=== PATIENT | male | born 1945 | race Asian ===

== ENCOUNTER 2024-12-22 13:56 | Inpatient (IN) | payer MEDICARE ==
[~2024-12-22] VITALS: Ht 162.6 cm; Wt 38.8 kg
[2024-12-22] MEDS: SODIUM CHLORIDE 0.9% 500 ML IV ONE (15:11)
[2024-12-22 15:39] LABS: BASOPHILS % (AUTO) 0.3 % (0.0-2.0); EOSINOPHILS % (AUTO) 0.7 % (1.0-6.0); HEMATOCRIT 39.9 % (41-53); HEMOGLOBIN 13.1 g/dL (13.5-17.5); LYMPHOCYTES # (AUTO) 0.4 K/uL (1.0-4.8); LYMPHOCYTES % (AUTO) 4.3 % (22.0-44.0); MEAN CORPUSCULAR HEMOGLOBIN 30.9 pg (26.0-34.0); MEAN CORPUSCULAR HGB CONC 32.7 G/dL (31.0-37.0); MEAN CORPUSCULAR VOLUME 95 fL (80-100); MONOCYTES # (AUTO) 0.7 K/uL (0.1-1.0); MONOCYTES % (AUTO) 7.7 % (2.0-9.0); NEUTROPHILS # (AUTO) 8.5 K/uL (1.8-7.7); PLATELET COUNT (AUTO) 277 K/uL (150-450); RED BLOOD CELL COUNT(AUTO) 4.23 MIL/uL (4.50-5.90); RED CELL DISTRIBUTION WIDTH 13.3 % (11.5-14.5); WHITE BLOOD COUNT (AUTO) 9.7 K/uL (4.5-11.0)
[2024-12-22 15:50] LABS: ANION GAP 10 mmol/L (8-16); CALCIUM, TOTAL 9.8 mg/dL (8.8-10.5); CARBON DIOXIDE 31 mmol/L (22-29); CHLORIDE 105 mmol/L (98-107); GLOMERULAR FILTR. RATE CALC 31 mL/min (>60); GLUCOSE,RANDOM 135 mg/dL (70-110); POTASSIUM 3.8 mmol/L (3.5-5.1); SODIUM SERUM 146 mmol/L (136-145); UREA NITROGEN, BLOOD 41 mg/dL (7-18)
[2024-12-22 15:59] LABS: ALANINE AMINOTRANSFERASE 7 U/L (12-78); ALBUMIN 2.5 g/dL (3.4-5.0); ALKALINE PHOSPHATASE 81 U/L (46-116); ASPARTATE AMINOTRANSFERASE 24 U/L (15-37); BILIRUBIN,TOTAL 0.4 mg/dL (0.1-1.0); TOTAL PROTEIN, SERUM 7.3 g/dL (6.4-8.2); TROPONIN I-HIGH SENSITIVITY 26 ng/L (<76)
[2024-12-22 16:21] LABS: PROTHROMBIN TIME 10.9 SEC (9.4-11.6)
[2024-12-22] MEDS: SODIUM CHLORIDE 0.9% 1,000 ML IV ONE (16:21)
[2024-12-22] MEDS: CefTRIAXone 1 GM/DEXTROSE 50 ML IV ONE (16:27)
[2024-12-22 16:37] LABS: COVID AG,FIA SOURCE NASAL SWAB
[2024-12-22] MEDS: LevETIRAcetam 1,000 MG in DEXTROSE 5%-WATER 100 ML IV ONE (16:49)
[2024-12-22 16:59] LABS: SARS-COV2 (COVID) ANTIGEN,FIA Negative (Negative)
[2024-12-22 16:59] LABS: B-TYPE NATRIURETIC PEPTIDE 154 pg/mL (0-100)
[2024-12-22 17:01] LABS: INFLUENZA TYPE A NEGATIVE FOR TYPE A (NEGATIVE); INFLUENZA TYPE B NEGATIVE FOR TYPE B (NEGATIVE)
[2024-12-22] MEDS ORDERED: 0.9% SODIUM CHLORIDE 10 ML SYRINGE IVP ONE (18:07)
[2024-12-22] MEDS ORDERED: IOHEXOL 350 MG/ML 100 ML VIAL ONE (18:07)
[2024-12-22] MEDS ORDERED: SODIUM CHLORIDE 0.9% 100 ML ONE (18:07)
[2024-12-22 19:16] LABS: GLUCOMETER DEV NAME(LOC) ER.7; GLUCOSE,POINT OF CARE 142 MG/DL (70-110)
[2024-12-22 19:46] LABS: APPEARANCE,URINE CLEAR (CLEAR); BILIRUBIN,URINE NEGATIVE (NEGATIVE); COLOR,URINE LIGHT YELLOW (YELLOW); GLUCOSE, URINE (UA) NEGATIVE (NEGATIVE); KETONES,URINE NEGATIVE (NEGATIVE); LEUKOCYTE ESTERASE ,URINE NEGATIVE (NEGATIVE); NITRATE,URINE NEGATIVE (NEGATIVE); OCCULT BLOOD,URINE NEGATIVE (NEGATIVE); PH,URINE 6.5 (5.0-8.0); PROTEIN,URINE TRACE mg/dL (NEGATIVE); SPECIFIC GRAVITIY, URINE 1.013 (1.003-1.030); UROBILINOGEN,URINE <=1.0 mg/dL (<=1.0)
[2024-12-22 20:11] LABS: BACTERIA,URINE Rare /HPF (None Seen); RBC,URINE None Seen /HPF (0-2); WBC,URINE 0-2 /HPF (0-5)
[2024-12-22] MEDS: DOCUSATE SODIUM 100 MG CAPSULE PO SCH (20:42)
[2024-12-22] MEDS ORDERED: ONDANSETRON HCL 4 MG/2 ML VIAL IVP PRN (20:45)
[2024-12-22 20:48] LABS: CREATININE,URINE RANDOM 44.5 mg/dL (30.0-125.0)
[2024-12-22] MEDS: MANNITOL 25%-12.5 GM/50 ML VIAL IVP ONE (20:50)
[2024-12-22] MEDS: NiCARDipine HCL 25 MG in SODIUM CHLORIDE 0.9% 240 ML IV PRN (21:14)
[2024-12-22] MEDS: CHLORHEXIDINE GLUCONATE 2% TOWELETTE [2'S/6'S] TP SCH (21:21)
[2024-12-22 22:50] VITALS: BP 138/88; PULSE 107; RESP 34; TEMP 98.7; O2SAT 99
[2024-12-23] VITALS: BP 122/78; PULSE 92; RESP 15; TEMP 98.7; O2SAT 97
[2024-12-23] MEDS: ETHYL ALCOHOL 62% ANTISEPTIC NASAL SANITIZER 0.6 ML AMPUL NASAL SCH
[2024-12-23 04:00] VITALS: BP 152/78; PULSE 102; RESP 31; TEMP 98.6; O2SAT 96
[2024-12-23 06:25] LABS: BASOPHILS % (AUTO) 0.6 % (0.0-2.0); EOSINOPHILS % (AUTO) 0.4 % (1.0-6.0); HEMATOCRIT 40.4 % (41-53); HEMOGLOBIN 13.4 g/dL (13.5-17.5); LYMPHOCYTES # (AUTO) 0.6 K/uL (1.0-4.8); LYMPHOCYTES % (AUTO) 5.8 % (22.0-44.0); MEAN CORPUSCULAR HEMOGLOBIN 31.1 pg (26.0-34.0); MEAN CORPUSCULAR HGB CONC 33.2 G/dL (31.0-37.0); MEAN CORPUSCULAR VOLUME 94 fL (80-100); MONOCYTES # (AUTO) 0.7 K/uL (0.1-1.0); MONOCYTES % (AUTO) 7.2 % (2.0-9.0); NEUTROPHILS # (AUTO) 8.3 K/uL (1.8-7.7); PLATELET COUNT (AUTO) 287 K/uL (150-450); RED BLOOD CELL COUNT(AUTO) 4.31 MIL/uL (4.50-5.90); RED CELL DISTRIBUTION WIDTH 13.1 % (11.5-14.5); WHITE BLOOD COUNT (AUTO) 9.6 K/uL (4.5-11.0)
[2024-12-23 06:31] LABS: CALCIUM, TOTAL 9.4 mg/dL (8.8-10.5); CREATININE 1.65 mg/dL (0.60-1.30); MAGNESIUM 2.2 mg/dL (1.80-2.40); POTASSIUM 3.6 mmol/L (3.5-5.1)
[2024-12-23 08:00] VITALS: BP 133/89; PULSE 100; RESP 14; TEMP 96; O2SAT 96
[2024-12-23] MEDS: LevETIRAcetam 250 MG TABLET PO SCH (08:05)
[2024-12-23] MEDS ORDERED: HydrALAZINE HCL 20 MG/ML VIAL IVP PRN (10:30)
[2024-12-23 12:00] VITALS: BP 125/86; PULSE 101; RESP 25; TEMP 98; O2SAT 98
[2024-12-23] MEDS ORDERED: DEXTROSE 50%-WATER 25 GM/50 ML SYRINGE IVP ONE (12:35)
[2024-12-23] MEDS: DEXTROSE 50%-WATER 25 GM/50 ML SYRINGE IVP PRN (12:37)
[2024-12-23] MEDS: DEXTROSE 5%-0.45% SODIUM CHL 1,000 ML IV ONE (13:15)
[2024-12-23] MEDS: ACETAMINOPHEN 325 MG TABLET PO PRN (13:17)
[2024-12-23 16:00] VITALS: BP 136/76; PULSE 87; RESP 28; TEMP 98.3; O2SAT 99
[2024-12-23 17:00] LABS: GLUCOMETER DEV NAME(LOC) ICU.S6; GLUCOSE,POINT OF CARE 53 MG/DL (70-110)
[2024-12-23 17:01] LABS: GLUCOMETER DEV NAME(LOC) ICUN.5; GLUCOSE,POINT OF CARE 202 MG/DL (70-110)
[2024-12-23 20:00] VITALS: BP 168/97; PULSE 80; RESP 32; TEMP 98.6; O2SAT 97
[2024-12-24] VITALS: BP 161/93; PULSE 77; RESP 20; TEMP 98.6; O2SAT 96
[2024-12-24 04:00] VITALS: BP 114/71; PULSE 84; RESP 21; TEMP 98.8; O2SAT 96
[2024-12-24 05:50] LABS: BASOPHILS % (AUTO) 0.5 % (0.0-2.0); EOSINOPHILS % (AUTO) 1.4 % (1.0-6.0); HEMATOCRIT 41.6 % (41-53); HEMOGLOBIN 13.6 g/dL (13.5-17.5); LYMPHOCYTES # (AUTO) 0.6 K/uL (1.0-4.8); LYMPHOCYTES % (AUTO) 6.1 % (22.0-44.0); MEAN CORPUSCULAR HEMOGLOBIN 30.4 pg (26.0-34.0); MEAN CORPUSCULAR HGB CONC 32.6 G/dL (31.0-37.0); MEAN CORPUSCULAR VOLUME 93 fL (80-100); MONOCYTES # (AUTO) 0.8 K/uL (0.1-1.0); NEUTROPHILS # (AUTO) 7.6 K/uL (1.8-7.7); PLATELET COUNT (AUTO) 270 K/uL (150-450); RED BLOOD CELL COUNT(AUTO) 4.47 MIL/uL (4.50-5.90); RED CELL DISTRIBUTION WIDTH 13.6 % (11.5-14.5); WHITE BLOOD COUNT (AUTO) 9.1 K/uL (4.5-11.0)
[2024-12-24 06:13] LABS: ANION GAP 11 mmol/L (8-16); CARBON DIOXIDE 26 mmol/L (22-29); CHLORIDE 106 mmol/L (98-107); CREATININE 1.76 mg/dL (0.60-1.30); GLOMERULAR FILTR. RATE CALC 37 mL/min (>60); GLUCOSE,RANDOM 150 mg/dL (70-110); POTASSIUM 3.3 mmol/L (3.5-5.1); SODIUM SERUM 143 mmol/L (136-145); TROPONIN I-HIGH SENSITIVITY 23 ng/L (<76); UREA NITROGEN, BLOOD 38 mg/dL (7-18)
[2024-12-24 08:00] VITALS: BP 142/83; PULSE 89; RESP 19; TEMP 97.7; O2SAT 95
[2024-12-24 09:02] LABS: CHOL/HDL RATIO 2.6 (4.2-7.3); CHOLESTEROL 117 mg/dL (131-200); HDL CHOLESTEROL 45 mg/dL (40-60); LDL CHOL (CALC.) 52 mg/dL (0-130); TRIGLYCERIDES 98 mg/dL (15-150)
[2024-12-24 12:00] VITALS: BP 154/69; PULSE 82; RESP 19; TEMP 97.9; O2SAT 98
== END 2024-12-24 17:15 | disposition home or self-care (01) | DRG 64 ==
LOC: EMS 13:56 → EDH 20:34 → ICU 22:39
PROVIDERS: ADMIT Internal Medicine; ATTEND Internal Medicine
DX: I62.01 Nontraumatic acute subdural hemorrhage (principal); E43 Unspecified severe protein-calorie malnutrition; G93.49 Other encephalopathy; E87.0 Hyperosmolality and hypernatremia; Z68.1 Body mass index [BMI] 19.9 or less, adult; G81.91 Hemiplegia, unspecified affecting right dominant side; R79.89 Other specified abnormal findings of blood chemistry; Z20.822 Contact with and (suspected) exposure to COVID-19; N18.9 Chronic kidney disease, unspecified; I12.9 Hypertensive chronic kidney disease with stage 1 through stage 4 chronic kidney disease, or unspecified chronic kidney disease; K59.00 Constipation, unspecified; Z86.79 Personal history of other diseases of the circulatory system; Z87.891 Personal history of nicotine dependence
CPT/HCPCS: 70450; 71045; 74177; 80048; 80061; 80076; 81001; 82570; 82962; 83605; 83735; 83880; 84300; 84484; 85025; 85610; 85730; 86850; 86900; 86901; 87040; 87081; 87804; 92610; 93005; 93306; 97163; 97166; 97530; 97535; 99285; J0696; J0712; J2150; J3490; J7030; J7040; J7050; J7060; 36415-L1; 36415-TC